=== PATIENT | female | born 1990 | race Caucasian/White ===

== ENCOUNTER 2018-03-13 14:09 | Emergency (ER) | payer OTHER ==
[2018-03-13] MEDS ORDERED: ONDANSETRON 4 MG/2 ML VIAL ONE (14:54)
[2018-03-13] MEDS ORDERED: KETOROLAC 30 MG/ML INJ ONE (14:54)
[2018-03-13] MEDS ORDERED: NA CHLORIDE 0.9% 1,000 ML ONE (14:55)
[2018-03-13 15:15] LABS: Absolute Lymphocytes (CBC) 2.9 K/uL (0.7-4.9); Absolute Monocytes 0.8 K/uL (0.1-1.3); Absolute Neutrophil 4.5 K/uL (1.8-8.0); Basophils % 0.8 % (0-1.3); Hematocrit 37.7 % (36.0-45.0); Lymphocytes % 34.8 % (15.3-44.8); MCV 90.1 fL (80-100); MPV 9.2 fL (7.6-11.3); Monocytes % 9.5 % (3.3-12.3); RBC Red Blood Cell Count 4.18 M/uL (3.86-4.86)
[2018-03-13 15:25] LABS: ALT/SGPT 18 U/L (12-78); AST/SGOT 17 U/L (15-37); Albumin 3.8 g/dL (3.4-5.0); Alkaline Phosphatase 93 U/L (45-117); BUN Blood Urea Nitrogen 6 mg/dL (7-18); Bicarbonate 26 mmol/L (21-32); Bilirubin Direct < 0.1 mg/dL (0-0.2); Bilirubin Total 0.3 mg/dL (0.2-1.0); Glucose Level 89 mg/dL (74-106); Lipase 110 U/L (73-393); Potassium 3.9 mmol/L (3.5-5.1); Protein, Total 7.4 g/dL (6.4-8.2); Sodium Level 140 mmol/L (136-145)
--- NOTE | 2018-03-13 15:49 | RAD REPORT ---
EXAM DESCRIPTION: US - Abdomen Exam Limited - 03/13/2018 3:42 pm CLINICAL HISTORY: ABD PAIN COMPARISON: No comparisons FINDINGS: The gallbladder demonstrates no gallstones. No pericholecystic fluid or gallbladder wall t hickening. The common bile duct is normal measuring 3 mm. The liver demonstrates no findings of intrahepatic biliary dilatation. IMPRESSION: Unremarkable examination.
--- NOTE | 2018-03-13 17:09 | RAD REPORT ---
EXAM DESCRIPTION: CTAbdomen Pelvis W Contrast - 03/13/2018 4:57 pm CLINICAL HISTORY: Abdominal pain. IV contrast only;Abd pain COMPARISON: CT ABD PELVIS W CONTRAST dated 08/09/2012 TECHNIQUE: Biphasic CT imaging of the abdomen and pelvis was performed with 100 ml non-ionic IV cont rast. All CT scans are performed using dose optimization technique as appropriate and may include automated exposure control or mA/KV adjustment according to patient size. FINDINGS: The lung bases are clear. The liver, spleen, pancreas, adrenal glands and left kidney are within normal limits. Stones are pres ent in the inferior calyx right kidney without hydronephrosis. No bowel obstruction, free air, free fluid or abscess. Fat containing umbilical hernia. The appendix is not identified as a discrete structure, however, no secondary findings of appendicitis are identif ied. IUD is present in the uterus. No evidence of significant lymphadenopathy. No suspicious bony findings. Prominent fecal retention in the colon. IMPRESSION: Prominent fecal material in colon. Several small calculi are present inferior right kidney. Small fat containing umbilical hernia.
--- NOTE | 2018-03-13 17:27 | EDPHYS ---
Physician Documentation [facility] Name: Sydney Nur Age: 27 yrs Sex: Female : 1990 Arrival Date: 03/13/2018 Time: 14:12 Bed 25 Private MD: Oni Barboza ED Physician Norbert Boles HPI: 03/13 14:36 This 27 yrs old Female presents to ER via Unassigned with complaints of kb Abdominal Pain. 14:36 The patient presents with abdominal pain in the right upper quadrant. Onset: The kb symptoms/episode began/occurred 8 day(s) ago. The symptoms radiate to right back. Associated signs and symptoms: none. The symptoms are described as waxing/waning. Modifying factors: the symptoms are aggravated by breathing deeply, food, pressure. Severity of pain: At its worst the pain was moderate in the emergency department the pain is unchanged. The patient has not experienced similar symptoms in the past. The patient has been recently seen by a physician: the ER physician, 1 week(s) ago, with similar presenting complaints, and apparently given a diagnosis of kidney infection, lab tests were done, was given a prescription for antibiotics. 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 - Social history:: Smoking status: Patient/guardian denies using tobacco. - Ebola Screening: : Patient negative for fever greater than or equal to 101.5 degrees Fahrenheit, and additional compatible Ebola Virus Disease symptoms Patient denies exposure to infectious person Patient denies travel to an Ebola-affected area in the 21 days before illness onset No symptoms or risks identified at this time. ROS: 14:33 Constitutional: Negative for fever, chills, and weight loss, Cardiovascular: Negative kb for chest pain, palpitations, and edema, Respiratory: Negative for shortness of breath, cough, wheezing, and pleuritic chest pain, MS/Extremity: Negative for injury and deformity, Skin: Negative for injury, rash, and discoloration, Neuro: Negative for headache, weakness, numbness, tingling, and seizure. 14:33 Abdomen/GI: Positive for abdominal pain. Exam: 14:35 Constitutional: This is a well developed, well nourished patient who is awake, alert, kb and in no acute distress. Head/Face: Normocephalic, atraumatic. Chest/axilla: Normal chest wall appearance and motion. Nontender with no deformity. No lesions are appreciated. Cardiovascular: Regular rate and rhythm with a normal S1 and S2. No gallops, murmurs, or rubs. Normal PMI, no JVD. No pulse deficits. Respiratory: Lungs have equal breath sounds bilaterally, clear to auscultation and percussion. No rales, rhonchi or wheezes noted. No increased work of breathing, no retractions or nasal flaring. Skin: Warm, dry with normal turgor. Normal color with no rashes, no lesions, and no evidence of cellulitis. MS/ Extremity: Pulses equal, no cyanosis. Neurovascular intact. Full, normal range of motion. Neuro: Awake and alert, GCS 15, oriented to person, place, time, and situation. Cranial nerves II-XII grossly intact. Motor strength 5/5 in all extremities. Sensory grossly intact. Cerebellar exam normal. Normal gait. 14:35 Abdomen/GI: Inspection: abdomen appears normal, Bowel sounds: normal, in all quadrants, Palpation: soft, in all quadrants, moderate abdominal tenderness, in the right upper quadrant. Vital Signs: 14:21 Pulse 89; Resp 16; Temp 98.0; Pulse Ox 99% on R/A; Weight 81.65 kg; Height 5 ft. 7 in. sg (170.18 cm); Pain 10/10; 14:22 BP 128 / 90; sg 15:39 BP 119 / 65; Pulse 78; Resp 18; Pulse Ox 98% on R/A; tl3 17:05 BP 112 / 55; Pulse 72; Resp 18; Pulse Ox 100% on R/A; tl3 17:41 BP 101 / 65; Pulse 70; Resp 18; Pulse Ox 100% on R/A; Pain 0/10; mg2 14:21 Body Mass Index 28.19 (81.65 kg, 170.18 cm) MDM: 14:25 Patient medically screened. kb 14:34 Data reviewed: vital signs, nurses notes. Data interpreted: Pulse oximetry: on room air kb is 99 %. Interpretation: normal. 17:20 Counseling: I had a detailed discussion with the patient and/or guardian regarding: the historical points, exam findings, and any diagnostic results supporting the discharge/admit diagnosis, lab results, radiology results, the need for outpatient follow up, a family practitioner, to return to the emergency department if symptoms worsen or persist or if there are any questions or concerns that arise at home. 17:25 ED course: Pt will continue antibiotics given by ERP at [facility]. Pt has Tylenol #3 at home. 03/13 14:30 Order name: Basic Metabolic Panel; Complete Time: 15:28 kb 03/13 14:30 Order name: CBC with Diff; Complete Time: 15:28 kb 03/13 14:30 Order name: Hepatic Function; Complete Time: 15:28 kb 03/13 14:30 Order name: Lipase; Complete Time: 15:28 kb 03/13 15:46 Order name: Urine Dipstick--Ancillary (enter results) 03/13 15:46 Order name: Urine --Ancillary (enter results) 03/13 14:30 Order name: IV Saline Lock; Complete Time: 15:02 kb 03/13 14:30 Order name: Labs collected and sent; Complete Time: 15:02 kb 03/13 14:30 Order name: US Abdomen Limited; Complete Time: 15:51 kb 03/13 15:22 Order name: CT Abd/Pelvis - W/Contrast; Complete Time: 17:11 kb 03/13 15:23 Order name: Urine Dipstick-Ancillary (obtain specimen); Complete Time: 15:39 kb Administered Medications: 15:00 Drug: NS 0.9% 1000 ml Route: IV; Rate: 1000 ml; Site: left antecubital; mg2 17:06 Follow up: IV Status: Completed infusion; IV Intake: 1000ml tl3 15:01 Drug: TORadol 30 mg Route: IVP; Site: left antecubital; mg2 17:07 Follow up: Response: Pain is decreased tl3 15:01 Drug: Zofran 4 mg Route: IVP; Site: left antecubital; mg2 17:07 Follow up: Response: No adverse reaction tl3 Disposition: 18:38 Co-signature as Attending Physician, Norbert Boles MD. Disposition: 03/13/18 17:26 Discharged to Home. Impression: Upper abdominal pain, unspecified. - Condition is Stable. - Discharge Instructions: Abdominal Pain, Adult, [id number]. - Medication Reconciliation Form, Thank You Letter, Antibiotic Education, Prescription Opioid Use form. - Follow up: Emergency Department; When: As needed; Reason: Worsening of condition. Follow up: Private Physician; When: 2 - 3 days; Reason: Recheck today's complaints, Continuance of care, Re-evaluation by your physician. Signatures: Dispatcher [employer] EDMS Maria Guadalupe Gibbons, RIDE MECHANIC-C RIDE MECHANIC-CkArmando Godinez, RN RN sg Norbert Boles MD MD Jose D Olmedo RN RN [facility] Maisha Rodriguez RN tl3 Corrections: (The following items were deleted from the chart) 14:22 14:18 PSHx: None; [facility] 17:41 17:26 03/13/2018 17:26 Discharged to Home. Impression: Upper abdominal pain, mg2 unspecified. Condition is Stable. Forms are Medication Reconciliation Form, Thank You Letter, Antibiotic Education, Prescription Opioid Use. Follow up: Emergency Department; When: As needed; Reason: Worsening of condition. Follow up: Private Physician; When: 2 - 3 days; Reason: Recheck today's complaints, Continuance of care, Re-evaluation by your physician. kb
--- NOTE | 2018-03-13 17:27 | ER ---
Nurse's Notes [facility] Name: Sydney Nur Age: 27 yrs Sex: Female : 1990 Arrival Date: 03/13/2018 Time: 14:12 Bed 25 Private MD: Oni Barboza Diagnosis: Upper abdominal pain, unspecified Presentation: 03/13 14:18 Acuity: ANAHI 3 sg 15:04 Presenting complaint: Patient states: she is complaining of nausea and right upper mg2 quadrant pain for few days already. Transition of care: patient was not received from another setting of care. Onset of symptoms was February 2018. Risk Assessment: Do you want to hurt yourself or someone else? Patient reports no desire to harm self or others. Initial Sepsis Screen: Does the patient meet any 2 criteria? No. Patient's initial sepsis screen is negative. Does the patient have a suspected source of infection? No. Patient's initial sepsis screen is negative. Care prior to arrival: None. 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 - Social history:: Smoking status: Patient/guardian denies using tobacco. - Ebola Screening: : Patient negative for fever greater than or equal to 101.5 degrees Fahrenheit, and additional compatible Ebola Virus Disease symptoms Patient denies exposure to infectious person Patient denies travel to an Ebola-affected area in the 21 days before illness onset No symptoms or risks identified at this time. Screenin:02 Abuse screen: Denies threats or abuse. Denies injuries from another. Nutritional mg2 screening: No deficits noted. Tuberculosis screening: No symptoms or risk factors identified. Fall Risk IV access (20 points). Assessment: 15:02 General: Appears in no apparent distress. comfortable, Behavior is calm, cooperative. mg2 Pain: Complains of pain in right upper quadrant Pain does not radiate. Pain currently is 8 out of 10 on a pain scale. Quality of pain is described as aching, Pain began gradually, 2-3 days ago. Is intermittent. Neuro: Level of Consciousness is awake, alert, obeys commands, Oriented to person, place, time, situation. Cardiovascular: Capillary refill < 3 seconds Patient's skin is warm and dry. Respiratory: Airway is patent Respiratory effort is even, unlabored, Respiratory pattern is regular, symmetrical. GI: Bowel sounds present X 4 quads. Abd is soft Reports upper abdominal pain, nausea. : No signs and/or symptoms were reported regarding the genitourinary system. EENT: No signs and/or symptoms were reported regarding the EENT system. Derm: Skin is intact, is healthy with good turgor, Skin is pink, warm \T\ dry. normal. Musculoskeletal: No signs and/or symptoms reported regarding the musculoskeletal system. 15:39 Reassessment: Patient appears in no apparent distress at this time. Patient and/or tl3 family updated on plan of care and expected duration. Pain level reassessed. Patient is alert, oriented x 3, equal unlabored respirations, skin warm/dry/pink. no needs at this time. 17:05 Reassessment: Patient appears in no apparent distress at this time. No changes from tl3 previously documented assessment. Patient and/or family updated on plan of care and expected duration. Pain level reassessed. Patient is alert, oriented x 3, equal unlabored respirations, skin warm/dry/pink. pt returned from CT. Vital Signs: 14:21 Pulse 89; Resp 16; Temp 98.0; Pulse Ox 99% on R/A; Weight 81.65 kg; Height 5 ft. 7 in. sg (170.18 cm); Pain 10/10; 14:22 BP 128 / 90; sg 15:39 BP 119 / 65; Pulse 78; Resp 18; Pulse Ox 98% on R/A; tl3 17:05 BP 112 / 55; Pulse 72; Resp 18; Pulse Ox 100% on R/A; tl3 17:41 BP 101 / 65; Pulse 70; Resp 18; Pulse Ox 100% on R/A; Pain 0/10; mg2 14:21 Body Mass Index 28.19 (81.65 kg, 170.18 cm) ED Course: 14:12 Patient arrived in ED. mr 14:12 Oni Barboza MD is Private Physician. mr 14:12 Maria Guadalupe Gibbons [facility]C [facility] kb 14:12 Norbert Boles MD is Attending Physician. kb 14:19 Triage completed. sg 14:21 Arm band placed on. sg 15:01 No provider procedures requiring assistance completed. Inserted saline lock: 20 gauge mg2 in left antecubital area, using aseptic technique. Blood collected. 15:05 Patient has correct armband on for positive identification. Pulse ox on. NIBP on. mg2 15:31 Maisha Rodriguez, RN is Primary Nurse. tl3 15:39 US Abdomen Limited Sent. tl3 15:42 US Abdomen Limited In Process Unspecified. EDMS 16:20 Radiology exam delayed due to test not completed at this time. mw3 16:57 CT Abd/Pelvis - W/Contrast In Process Unspecified. EDMS 17:16 CT completed. Patient tolerated procedure well. Patient moved to CT via wheelchair. mw3 Patient moved back from CT. 17:40 IV discontinued, intact, bleeding controlled, No redness/swelling at site. Pressure mg2 dressing applied. Administered Medications: 15:00 Drug: NS 0.9% 1000 ml Route: IV; Rate: 1000 ml; Site: left antecubital; mg2 17:06 Follow up: IV Status: Completed infusion; IV Intake: 1000ml tl3 15:01 Drug: TORadol 30 mg Route: IVP; Site: left antecubital; mg2 17:07 Follow up: Response: Pain is decreased tl3 15:01 Drug: Zofran 4 mg Route: IVP; Site: left antecubital; mg2 17:07 Follow up: Response: No adverse reaction tl3 Intake: 17:06 IV: 1000ml; Total: 1000ml. tl3 Outcome: 17:26 Discharge ordered by . kb 17:40 Discharged to home ambulatory. mg2 17:40 Condition: stable 17:40 Discharge instructions given to patient, Instructed on discharge instructions, follow up and referral plans. Demonstrated understanding of instructions, follow-up care. 17:41 Patient left the ED. mg2 Signatures: Dispatcher [employer] EDMS Maria Guadalupe Gibbons, ALEXIS RÍOSP-Armando Salcedo RN RN sg PickettLory mr Maisha Rodriguez, RN RN tl3 Jose D Olmedo RN RN mg2 Tara Goncalves mw3 Corrections: (The following items were deleted from the chart) 14:22 14:18 PSHx: None; sg sg
[2018-03-13 17:51] VITALS: TEMP 98
[2018-03-13 18:02] VITALS: O2SAT 100
[2018-03-13 18:04] VITALS: BP 101/65
[2018-03-13 20:28] LABS: Urine Blood TRACE (NEG); Urine Glucose NEGATIVE (NEG); Urine Protein NEGATIVE (NEG)
== END 2018-03-13 17:41 | disposition home or self-care (01) ==
LOC: ER 14:09
DX: R10.10 Upper abdominal pain, unspecified (principal); Z88.0 Allergy status to penicillin
CPT/HCPCS: 36415; 74177; 76705; 80048; 80076; 81003; 81025; 83690; 85025; 96361; 96374; 96375; 99284; J2405; J7030; Q9967

== ENCOUNTER 2023-11-08 17:39 | Emergency (ER) | payer BC ==
--- OUTSIDE RECORDS SUMMARY | 2023-11-08 17:42 | XMS REPORT | Continuity of Care Document ---
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 Role Phone Aileen Real Primary Care Physician +- [phone] [email or web address]_Eboniea_S Attending Clinician Unavaila AMARJIT Ramirez Attending Clinician Unavaila AMARJIT Ramirez Attending Clinician Unavaila Vinod Moralez PA-C Attending Clinician [phone] VINOD ORTEZ Attending Clinician Unavailable KIT NAJERA Attending Clinician Unavailable Doctor Unassigned, [place] Attending Clinician U roula Sylvester RN, Ely Fox Attending Clinician Unavaila Rip Perez Attending Clinician [phone] MARCELA DAVID Attending Clinician Unavailable Lab, Adc Fam Pob I Attending Clinician Marcela Griffin Attending Clinician [phone] Aileen Real Attending Clinician [phone] MARY_GCBZW_Nemesio_S Admitting Clinician Imer foster Payers Payer Name Policy Type Policy Number Effective Date Expirati on Date Source [facility] [id number] 2020 00:00:00 [place] [id number] 2023 00:00:00 CIGNA II [id number] 2020 00:00:00 Problems Condition Name Condition Details Condition Category Status Onset Date Resolution Date Last Treatment Date Treating Clinician Comments Source Herpes genitalia Herpes genitalia Disease Active 8-09 00:00: 00 [facility] Allergic contact dermatitis due to plants, except food Allergic contact dermatitis due to plants, except food Disease Active 4-18 00:00: 00 [facility] Contact dermatitis due to poison damaris Contact dermatitis due to poison damaris Disease Active 09-29 00:00: 00 [facility] Personal history of covid-19 Personal history of covid-19 Disease Active 2-15 00:00: 00 [facility] Well woman exam with routine gynecologi clifton exam Well woman exam with routine gynecologi clifton exam Disease Active 10-06 00:00: 00 [facility] IUD (intrauter ine device) in place IUD (intrauter ine device) in place Disease Active 10-06 00:00: 00 [facility] Tobacco user Tobacco user Disease Active 10-06 00:00: 00 [facility] BMI 30.0-30.9, adult BMI 30.0-30.9, adult Disease Active 10-06 00:00: 00 [facility] Pain pelvic Pain pelvic Disease Active 10-06 00:00: 00 [facility] Enlarged uterus Enlarged uterus Disease Active 10-06 00:00: 00 [facility] IUD (intrauter ine device) in place IUD (intrauter ine device) in place Disease Active 10-06 00:00: 00 [facility] Allergies, Adverse Reactions, Alerts Allergy Name Allergy Type Status Severity Reaction(s) Onset Date Inactive Date Treating Clinician Comments Source Penicill ins Propensi ty to adverse reaction s Active Anaphylaxis 2008-06 00:00: 00 [facility] Penicill ins Propensi ty to adverse reaction s Active Anaphylaxis 2008-06 00:00: 00 [facility] Penicill ins Propensi ty to adverse reaction s Active Anaphylaxis 2008-06 00:00: 00 [facility] PENICILL INS Drug Class Active Anaphylaxis 2008-06 00:00: 00 [facility] Social History Social Habit Start Date Stop Date Quantity Comments Source History of tobacco use 2016-10-06 00:00:00 Cigarette Smoker [facility] History SDOH Alcohol Frequency [facility] History SDOH Alcohol Std Drinks [facility] History SDOH Alcohol Binge [facility] Exposure to SARS-CoV-2 (event) 2022-01-08 00:00:00 2022-01-18 14:54:00 Not sure [facility] History of Social function 2020-01-18 00:00:00 2020-01-18 00:00:00 [facility] Alcohol intake 2018-10-06 00:00:00 2018-10-06 00:00:00 Current drinker of alcohol (finding) [facility] Tobacco Comment 2018-10-06 00:00:00 2018-10-06 00:00:00 vapes [facility] Alcohol Comment 2018-10-06 00:00:00 2018-10-06 00:00:00 occaisonal [facility] Tobacco use and exposure 2018-10-06 00:00:00 2018-10-06 00:00:00 Smokeless tobacco non-user [facility] Sex Assigned At 1990 00:00:00 1990 00:00:00 [facility] Smoking Status Start Date Stop Date Source Smokes tobacco daily 2018-10-06 00:00:00 [facility] Medications Ordered Medication Name Filled Medication Name Start Date Stop Date Current Medication? Ordering Clinician Indication Dosage Frequency Signature (SIG) Comments Components Source Nitrofurant oin&Nit. Macrocryst (MACROBID) 100 mg capsule 807 00:00: 00 01-26 04:59 :00 No [id number] 100mg Take 1 capsule by mouth in the morning and 1 capsule in the evening. Do all this for 7 days. [facility] ibuprofen 600 mg tablet 2 00:00: 00 Yes [id number] 600mg Take 1 tablet by mouth every 6 (six) hours as needed for Pain (scale 4-6). [facility] benzonatate 200 mg capsule 07-15 00:00: 00 Yes [id number] 200mg Take 1 capsule by mouth 3 (three) times daily as needed for Cough for up to 20 doses. [facility] ondansetron (ZOFRAN ODT) 4 mg disintegrat ing tablet 07-15 00:00: 00 Yes [id number] 4mg Take 1 tablet by mouth every 8 (eight) hours as needed for Nausea and Vomiting (N/V). [facility] No known medications No Un bridgett [facility] No known medications No Un bridgett [facility] V[facility] Signs Vital Name Observation Time Observation Value Comments S ource Systolic blood pressure 2022-01-18 22:08:00 126 mm[Hg] [facility] Diastolic blood pressure 2022-01-18 22:08:00 83 mm[Hg] [facility] Heart rate 2022-01-18 22:08:00 110 /min [facility] Body temperature 2022-01-18 22:08:00 37.56 Angela [facility] Respiratory rate 2022-01-18 22:08:00 18 /min [facility] Body height 2022-01-18 22:08:00 170.2 cm [facility] Body weight 2022-01-18 22:08:00 90.22 kg [facility] BMI 2022-01-18 22:08:00 31.15 kg/m2 [facility] Oxygen saturation in Arterial blood by Pulse oximetry 2022-01-18 22:08:00 98 /min [facility] Systolic blood pressure 2020-07-15 20:09:00 131 mm[Hg] [facility] Diastolic blood pressure 2020-07-15 20:09:00 91 mm[Hg] [facility] hospital Heart rate 2020-07-15 20:09:00 100 /min [facility] Body temperature 2020-07-15 20:09:00 37.61 Angela [facility] Respiratory rate 2020-07-15 20:09:00 16 /min [facility] Body weight 2020-07-15 20:09:00 91.218 kg [facility] BMI 2020-07-15 20:09:00 31.50 kg/m2 [facility] Oxygen saturation in Arterial blood by Pulse oximetry 2020-07-15 20:09:00 98 /min [facility] acute hospital Systolic blood pressure 2019-02-03 18:04:00 118 mm[Hg] [facility] Diastolic blood pressure 2019-02-03 18:04:00 81 mm[Hg] [facility] acute hospital Heart rate 2019-02-03 18:04:00 79 /min [facility] Body temperature 2019-02-03 18:04:00 36.89 Angela [facility] Respiratory rate 2019-02-03 18:04:00 18 /min [facility] Body height 2019-02-03 18:04:00 170.2 cm [facility] Body weight 2019-02-03 18:04:00 88.905 kg [facility] BMI 2019-02-03 18:04:00 30.70 kg/m2 [facility] Procedures Procedure Date / Time Performed Performing Clinicia n Source XR FOOT <3 VW RIGHT 2022-01-18 22:30:00 Vinod Ortez [facility] POCT TEST 2022-01-18 22:18:00 Vinod Ortez [facility] POCT URINALYSIS 2022-01-18 22:16:00 Vinod Ortez [facility] COMP. METABOLIC PANEL (95134) 2020-07-15 22:23:00 Rip Quintero [facility] CBC WITH DIFF 2020-07-15 22:23:00 Rip Quintero [facility] D-DIMER 2020-07-15 22:23:00 [facility] XR CHEST 1 VW 2020-07-15 22:16:00 Rip Quintero [facility] NOTICE OF PRIVACY PRACTICES 2020-07-15 19:48:11 Doctor Unassigned, [place] [facility] CONSENT/REFUSAL FOR DIAGNOSIS AND TREATMENT 2020-07-15 19:47:57 Doctor Unassigned, [place] [facility] Encounters Start Date/Time End Date/Time Encounter Type Admission Type Attending [email or web address] Care Department Encounter ID Source 2021-04-12 21:01:49 Emergency [facility] [id number] [facility] 2023-03-22 00:00:00 2023-03-22 00:00:00 Outpatient GC_GCBZW_Ka diyala_S PRIV PRIV [id number] [facility] 2023-03-22 00:00:00 2023-03-22 00:00:00 Outpatient GC_GCBZW_Ka diyala_S PRIV PRIV [id number] [facility] 2023-03-20 00:00:00 2023-03-20 00:00:00 Outpatient GC_GCBZW_Ka diyala_S PRIV PRIV [id number] [facility] 2023-03-18 00:00:00 2023-03-18 00:00:00 Outpatient GC_GCBZW_Ka diyala_S PRIV PRIV [id number] [facility] 2023-03-16 00:00:00 2023-03-16 00:00:00 Outpatient GC_GCBZW_Ka diyala_S PRIV PRIV [id number] [facility] 2023-03-16 00:00:00 2023-03-16 00:00:00 Outpatient GC_GCBZW_Ka diyala_S PRIV PRIV [id number] [facility] 2023-03-15 00:00:00 2023-03-15 00:00:00 Outpatient GC_GCBZW_Ka diyala_S PRIV PRIV [id number] [facility] 2023-02-23 00:00:00 2023-02-23 00:00:00 Outpatient GC_GCBZW_Ka diyala_S PRIV PRIV [id number] [facility] 2023-02-23 00:00:00 2023-02-23 00:00:00 Outpatient GC_GCBZW_Ka diyala_S PRIV PRIV [id number] [facility] 2023-02-12 00:00:00 2023-02-12 00:00:00 Outpatient GC_GCBZW_Ka diyala_S PRIV PRIV [id number] [facility] 2023-02-11 00:00:00 2023-02-11 00:00:00 Outpatient GC_GCBZW_Ka diyala_S PRIV PRIV [id number] [facility] 2022-01-27 11:30:00 2022-01-27 11:30:00 Outpatient AMARJIT MERRILL CHERYAL [facility] [id number] [facility] 2022-01-18 17:23:43 2022-01-18 23:59:00 Hospital Encounter Ortez, [facility] 1.2.840.114 350.1.13.10 4.2.7.2.686 [id number] [facility] 2022-01-18 17:20:00 2022-01-18 17:48:45 Outpatient R ANAND [facility] [id number] [facility] 2022-01-18 17:20:00 2022-01-18 17:48:45 [facility] 1.2.840.114 350.1.13.10 4.2.7.2.686 [id number] [facility] 2021-03-05 13:30:00 2021-03-05 13:30:00 Outpatient KIT GARG [facility] [id number] [facility] 2020-07-16 00:00:00 2020-07-16 00:00:00 Patient Secure Msg Doctor Unassigned, [place] [facility] 1.2.840.114 350.1.13.10 4.2.7.2.686 [id number] [facility] 2020-07-16 00:00:00 2020-07-16 00:00:00 Patient Secure Msg Doctor Unassigned, [place] [facility] 1.2.840.114 350.1.13.10 4.2.7.2.686 [id number] [facility] 2020-07-16 00:00:00 2020-07-16 00:00:00 Patient Secure Msg Doctor Unassigned, [place] [facility] 1.2.840.114 350.1.13.10 4.2.7.2.686 [id number] [facility] 2020-07-16 00:00:00 2020-07-16 00:00:00 Telephone Ely Sylvester [facility] 1.2.840.114 350.1.13.10 4.2.7.2.686 [id number] [facility] 2020-07-15 14:12:00 2020-07-15 18:22:00 Emergency Rip Quintero [facility] 1.2.840.114 350.1.13.10 4.2.7.2.686 [id number] [facility] 2020-07-15 00:00:00 2020-07-15 00:00:00 Orders Only Doctor Unassigned, [place] [facility] 1.2.840.114 350.1.13.10 4.2.7.2.686 [id number] [facility] 2020-05-12 12:20:00 2020-05-12 12:20:00 Outpatient MARCELA NEGRO [facility] [id number] [facility] 2020-05-12 11:48:56 2020-05-12 12:08:56 Laboratory Only Lab, Adc Fam Pob I Marcela David [facility] 1.2.840.114 350.1.13.10 4.2.7.2.686 [id number] [facility] 2020-05-12 12:00:00 2020-05-12 12:00:00 Outpatient R MARCELA DAVID [facility] [id number] [facility] 2019-02-03 12:54:07 2019-02-03 13:19:56 Office Visit Aileen Preston Jerardo [facility] [employer] [facility] 1.2.840.114 350.1.13.10 4.2.7.2.686 [id number] [facility] Results Test Description Test Time Test Comments Results Result Co mments Source [facility] W SPECIFIC [id number] 22:17:00* Test Item Value Reference Range Interpretation Comme nts POCT U SP GRAV (test code = 3255) 1.005 mg/dl 1.005-1.025 POCT PH U (test code = 3254) 6 mg/dl 5-8 POCT U LEUK EST (test code = 3263) + Negative - Negative POCT U NIT (test code = 3262) negative Negative - Negative POCT U PROT (test code = 3259) trace Negative - Negative POCT U GLU (test code = 3256) normal Negative - Negative POCT U KETONE (test code = 3258) negative Negative - Negative POCT U UROBILI (test code = 3260) normal 0.2-1 POCT U BILI (test code = 3261) negative Negative - Negative POCT U BLD (test code = 3257) trace Negative - Negative POCT U COLOR (test code = 3266) dark yellow POCT U APPEAR (test code = 3267) cloudy JERE (test code = JERE) accurate developme nt and interpretation of all internal controls Lab Interpretation (test code = 69256-1) Abnormal [facility][id number] 23:36:00* Test Item Value Reference Range Interpretation Comments D-DIMER (test code = 1706498736) <0.27 See_Comment [Automated message] The system which generated this result transmitted reference range: <0.41 ?g/mL (FEU). The reference range was not used to interpret this result as normal/abnormal. JERE (test code = JERE) This test may be used in conjunction with a clinical pretest probability (PTP) assessment model to exclude venous thromboembolism (VTE) in patients suspected of deep venous thrombosis (DVT) and pulmonary embolism (PE) A D-Dimer value less than 0.50 ?g/ml (FEU) has a negative predicative value of 96 to 100% (95% CI)and 97 to 100% (95% CI) as an aid in the diagnosis of deep vein thrombosis (DVT) and pulmonary embolism when there is low or moderate pretest probability of PE or DVT. D-Dimer values are expressed in initial fibrinogen equivalent units (FEU)" The assay results should be used with other information, including the clinical context, in forming a diagnosis. Lab Interpretation (test code = 04114-8) Normal [facility]OLIC PAN[facility] (52748)2020-07-15 23:13:00* Test Item Value Reference Range Interpretation Comme nts NA (test code = 9659694415) 138 mmol/L 135-145 K (test code = 2907701235) 3.9 mmol/L 3.5-5 CL (test code = 9371523421) 103 mmol/L 98-108 CO2 TOTAL (test code = 6127346280) 28 mmol/L 23-31 AGAP (test code = 8806158146) 2-16 BUN (test code = 5127165359) 6 mg/dL 7-23 L GLUCOSE (test code = 7802836297) 105 mg/dL 70-110 CREATININE (test code = 4703719474) 0.58 mg/dL 0.5-1.04 TOTAL BILI (test code = 8370501963) 0.4 mg/dL 0.1-1.1 CALCIUM (test code = 9993071119) 9.4 mg/dL 8.6-10.6 T PROTEIN (test code = 0976910123) 7.2 g/dL 6.3-8.2 ALBUMIN (test code = 7709711147) 4.5 g/dL 3.5-5 ALK PHOS (test code = 1512809941) 104 U/L 34-122 ALTv (test code = 1742-6) 71 U/L 5-35 H AST(SGOT) (test code = 8079021204) 39 U/L 13-40 eGFR Calculation (Non-) (test code = 2840677845) mL/min/1.73m2 eGFR Calculation () (test code = 1792898167) mL/min/1.73m2 JERE (test code = JERE) Association of Glomerular Filtration Rate (GFR) and Staging of Kidney Disease* + --+ --+ ------+| GFR (mL/min/1.73 m2) ?| With Kidney Damage ?| ?Without Kidney Damage+ --------+ --------+ +| ?>90 ?| ?Stage one ?| ? Normal ?+ ---+ ---+ -------+| ?60-89 ?| ?Stage two ?| ? Decreased GFR ? + --+ --+ ------+| ?30-59 ?| ?Stage three ?| ? Stage three ? + --+ --+ ------+| ?15-29 ?| ?Stage four ? | ? Stage four ?+ ---+ ---+ -------+| ?<15 (or dialysis) ? ?| ?Stage five ? | ? Stage five ?+ ---+ ---+ -------+ *Each stage assumes the associated GFR level has been in effect for at least three months. ?Stages 1 to 5, with or without kidney disease, indicate chronic kidney disease. Notes: Determination of stages one and two (with eGFR >59mL/min/1.73 m2) requires estimation of kidney damage for at least three months as defined by structural or functional abnormalities of the kidney, manifested by either:Pathological abnormalities or Markers of kidney damage (including abnormalities in the composition of the blood or urine or abnormalities in imaging tests). Lab Interpretation (test code = 16888-1) Abnormal [facility] WITH [id number] 22:57:00* Test Item Value Reference Range Interpretation Comme nts WBC (test code = 6690-2) See_Comment [Automated MyColorScreen] The system which generated this result transmitted reference range: 4.30 - 11.10 10*3/?L. The reference range was not used to interpret this result as normal/abnormal. RBC (test code = 789-8) See_Comment [Automated messa ge] The system which generated this result transmitted reference range: 3.93 - 5.25 10*6/?L. The reference range was not used to interpret this result as normal/abnormal. HGB (test code = 718-7) 13.3 g/dL 11.6-15 HCT (test code = 4544-3) 40.2 % 35.7-45.2 MCV (test code = 787-2) 92.8 fL 80.6-95.5 MCH (test code = 785-6) 30.7 pg 25.9-32.8 MCHC (test code = 786-4) 33.1 g/dL 31.6-35.1 RDW-SD (test code = 12739-7) 39.5 fL 39-49.9 RDW-CV (test code = 788-0) 11.6 % 12-15.5 L PLT (test code = 777-3) See_Comment H [Automated messa ge] The system which generated this result transmitted reference range: 166 - 358 10*3/?L. The reference range was not used to interpret this result as normal/abnormal. MPV (test code = 01427-8) 10.2 fL 9.5-12.9 NRBC/100 WBC (test code = 9490647343) See_Comment [Automated Independa ssage] The system which generated this result transmitted reference range: 0.0 - 10.0 /100 WBCs. The reference range was not used to interpret this result as normal/abnormal. NRBC x10^3 (test code = 7645698566) <0.01 See_Comment [Automated messa ge] The system which generated this result transmitted reference range: 10*3/?L. The reference range was not used to interpret this result as normal/abnormal. GRAN MAT (NEUT) % (test code = 770-8) 55.8 % IMM GRAN % (test code = 2464193321) 0.50 % LYMPH % (test code = 736-9) 32.5 % MONO % (test code = 5905-5) 8.0 % EOS % (test code = 713-8) 2.3 % BASO % (test code = 706-2) 0.9 % GRAN MAT x10^3(ANC) (test code = 9944925466) 4.88 10*3/uL 1.88-7.09 IMM GRAN x10^3 (test code = 6067341839) 0.04 10*3/uL 0-0.06 LYMPH x10^3 (test code = 731-0) 2.84 10*3/uL 1.32-3.29 MONO x10^3 (test code = 742-7) 0.70 10*3/uL 0.33-0.92 EOS x10^3 (test code = 711-2) 0.20 10*3/uL 0.03-0.39 BASO x10^3 (test code = 704-7) 0.08 10*3/uL 0.01-0.07 H Lab Interpretation (test code = 71227-0) [facility]normal [facility] 1 [id number] 22:16:40CHEST ONE VIEW HISTORY: ?CP, SOB TECHNIQUE: ?AP view of the chest is obtained. FINDINGS: Lungs are clear. Heart size and mediastinal silhouette arenormal. No pleural effusion or pneumothorax is seen.CONCLUSIONS: No acute cardiopulmonary disease. [facility], Radiant Results Inft User - 07/15/2020 4:17 PMCSTCHEST ONE VIEWHISTORY: CP, SOBTECHNIQUE: AP view of the chest is obtained.FINDINGS: Lungs are clear. Heart size and mediastinal silhouette arenormal. No pleural effusion or pneumothorax is seen.CONCLUSIONS: No acute cardiopulmonary disease.[facility]
[2023-11-08] MEDS ORDERED: NA CHLORIDE 0.9% 2,000 ML ONE (18:38)
[2023-11-08 18:47] LABS: Absolute Basophils 0.1 K/uL (0-0.5); Absolute Monocytes 1.6 K/uL (0.1-1.3); Absolute Neutrophil 13.8 K/uL (1.8-8.0); Basophils % 0.6 % (0-1.3); Eosinophils % 0.3 % (0-4.4); Hematocrit 40.9 % (36.0-45.0); Hemoglobin 13.8 g/dL (12.0-15.0); Lymphocytes % 16.3 % (15.3-44.8); MCH 30.9 pg (27.0-35.0); MCHC 33.8 g/dL (32.0-36.0); MCV 91.5 fL (80-100); MPV 8.3 fL (7.6-11.3); Monocytes % 8.4 % (3.3-12.3); Neutrophils % 74.4 % (41.7-73.7); Nucleated Red Blood Cells % 0.1 % (0-0); Platelets 425 thou/uL (152-406); RBC Red Blood Cell Count 4.47 M/uL (3.86-4.86); Red Cell Distribution Width 12.2 % (12.1-15.2)
[2023-11-08 18:48] LABS: Sqamous Epithelial <5 /HPF (None Seen); Urine Bacteria None Seen /HPF (<20); Urine Bilirubin NEGATIVE (Negative); Urine Blood 1+ (Negative); Urine Clarity Extremely Turbid (Clear); Urine Color Yellow (Yellow); Urine Crystals Unidentified Few /HPF (None Seen); Urine Culture Reflex Order NOT NEEDED; Urine Glucose NEGATIVE (Negative); Urine Ketones 1+ (Negative); Urine Microscopic Reflex YN ORDER UMIC; Urine Mucus 1+ /HPF (None Seen); Urine Nitrite NEGATIVE (Negative); Urine Protein TRACE (Negative); Urine Urobilinogen Normal (Normal); Urine WBC <5 /HPF (<5); Urine WBC Clump Rare /HPF (None Seen); Urine Yeast (Budding) Trace /HPF (None Seen); Urine pH 5.5 (5.0-7.0)
[2023-11-08 19:03] LABS: Albumin 4.1 g/dL (3.4-5.0); Albumin/Globulin Ratio 1.1 (1.1-1.8); Anion Gap 10.5 mEq/L (5.0-15.0); Bilirubin Total 0.8 mg/dL (0.2-1.0); Globulin 3.9 g/dL (2.3-3.5); Potassium 3.5 mEq/L (3.5-5.1); Troponin High Sensitivity 6.9 pg/mL (<58.9)
--- NOTE | 2023-11-08 19:48 | EDPHYS ---
Physician Documentation [facility] Name: Sydney Nur Age: 33 yrs Sex: Female : 1990 Arrival Date: 11/08/2023 Time: 17:39 Bed 13 Private MD: ED Physician Michael Eller HPI: 11/07 18:55 This 33 yrs old Female presents to ER via Ambulatory with complaints of Heat mal Exposure. 18:55 IN HEAT 7 HOURS TODAY, WEAK , HOT. Onset: The symptoms/episode began/occurred today. mal Severity of symptoms: At their worst the symptoms were mild in the emergency department the symptoms are unchanged. The patient has not experienced similar symptoms in the past. Historical: - Allergies: 18:13 PENICILLINS; hb - Home Meds: 18:13 escitalopram oxalate 10 mg oral tablet daily [Active]; hb - PMHx: 18:13 Kidney stones; hb - PSHx: 18:13 section; hb - Immunization history:: Adult Immunizations up to date. - Infectious Disease History:: Denies. - Social history:: Smoking status: Reported history of juuling and/or vaping. ROS: 18:59 Constitutional: Negative for fever, chills, and weight loss, Eyes: Negative for injury, mal pain, redness, and discharge, ENT: Negative for injury, pain, and discharge, Neck: Negative for injury, pain, and swelling, Respiratory: Negative for shortness of breath, cough, wheezing, and pleuritic chest pain, Abdomen/GI: Negative for abdominal pain, nausea, vomiting, diarrhea, and constipation, Back: Negative for injury and pain, : Negative for injury, bleeding, discharge, and swelling, MS/Extremity: Negative for injury and deformity, Skin: Negative for injury, rash, and discoloration, Psych: Negative for depression, anxiety, suicide ideation, homicidal ideation, and hallucinations, Allergy/Immunology: Negative for hives, rash, and allergies, Endocrine: Negative for neck swelling, polydipsia, polyuria, polyphagia, and marked weight changes, Hematologic/Lymphatic: Negative for swollen nodes, abnormal bleeding, and unusual bruising, 18:59 Cardiovascular: Positive for palpitations, 18:59 Neuro: Positive for dizziness, weakness, Exam: 18:59 Constitutional: This is a well developed, well nourished patient who is awake, alert, mal and in no acute distress. Head/Face: Normocephalic, atraumatic. Eyes: Pupils equal round and reactive to light, extra-ocular motions intact. Lids and lashes normal. Conjunctiva and sclera are non-icteric and not injected. Cornea within normal limits. Periorbital areas with no swelling, redness, or edema. ENT: Nares patent. No nasal discharge, no septal abnormalities noted. Tympanic membranes are normal and external auditory canals are clear. Oropharynx with no redness, swelling, or masses, exudates, or evidence of obstruction, uvula midline. Mucous membranes moist. Neck: Trachea midline, no thyromegaly or masses palpated, and no cervical lymphadenopathy. Supple, full range of motion without nuchal rigidity, or vertebral point tenderness. No Meningismus. Chest/axilla: Normal chest wall appearance and motion. Nontender with no deformity. No lesions are appreciated. Respiratory: Lungs have equal breath sounds bilaterally, clear to auscultation and percussion. No rales, rhonchi or wheezes noted. No increased work of breathing, no retractions or nasal flaring. Abdomen/GI: Soft, non-tender, with normal bowel sounds. No distension or tympany. No guarding or rebound. No evidence of tenderness throughout. Back: No spinal tenderness. No costovertebral tenderness. Full range of motion. Skin: Warm, dry with normal turgor. Normal color with no rashes, no lesions, and no evidence of cellulitis. MS/ Extremity: Pulses equal, no cyanosis. Neurovascular intact. Full, normal range of motion. Neuro: Awake and alert, GCS 15, oriented to person, place, time, and situation. Cranial nerves II-XII grossly intact. Motor strength 5/5 in all extremities. Sensory grossly intact. Cerebellar exam normal. Normal gait. Psych: Awake, alert, with orientation to person, place and time. Behavior, mood, and affect are within normal limits. 18:59 Cardiovascular: Rate: tachycardic, actual rate is 104 bpm, Rhythm: regular, Pulses: Pulses are 4+ in bilateral radial, brachial, femoral, popliteal, posterior tibial and and dorsalis pedis arteries.. Heart sounds: normal, Edema: is not appreciated, JVD: is not appreciated, 18:59 ECG was reviewed by the Attending Physician. Vital Signs: 18:12 BP 129 / 95; Pulse 104; Resp 15; Temp 99(O); Pulse Ox 98% on R/A; Weight 90.72 kg; hb Height 5 ft. 7 in. ; Pain 5/10; 19:15 BP 120 / 88; Pulse 99; Resp 18 S; Pulse Ox 98% on R/A; jw7 21:44 BP 124 / 82; Pulse 89; Resp 17; Temp 98.3; Pulse Ox 99% ; jj7 18:12 Body Mass Index 31.32 (90.72 kg, 170.18 cm) hb 18:12 Pain Scale: Adult hb MDM: 17:41 Patient medically screened. [facility] 19:01 Differential Diagnosis altered mental status, sepsis, flu. Data reviewed: vital signs, [facility] nurses notes, lab test result(s), EKG, radiologic studies, plain films. Consideration of Admission/Observation Escalation of care including admission/observation considered. I considered the following discharge prescriptions or medication management in the emergency department Medications were administered in the Emergency Department. See MAR. Independent interpretation of the following test(s) in the Emergency Department EKG: See my EKG interpretation above. Test considered but Not performed: X-ray: NO CXR. Historians other than the Patient: PT WELL INFORMED. Care significantly affected by the following chronic conditions: KIDNEY STONES. Counseling: I had a detailed discussion with the patient and/or guardian regarding the historical points, exam findings, and any diagnostic results supporting the discharge/admit diagnosis, lab results, radiology results, the need for outpatient follow up, for definitive care, a family practitioner. 11/07 17:43 Order name: CBC with Diff; Complete Time: 19:08 [facility] 11/07 17:43 Order name: Comprehensive Metabolic Panel; Complete Time: 19:08 [facility] 11/07 17:43 Order name: Troponin High Sensitivity; Complete Time: 19:08 [facility] 11/07 17:43 Order name: Urinalysis w/ reflexes; Complete Time: 18:49 [facility] 11/07 17:43 Order name: PREGU; Complete Time: 18:49 [facility] 11/07 17:43 Order name: CPK; Complete Time: 19:08 [facility] 11/07 17:43 Order name: EKG; Complete Time: 17:43 [facility] 11/07 17:43 Order name: EKG - Nurse/Tech; Complete Time: 19:01 [facility] 11/07 17:43 Order name: PO challenge; Complete Time: : [facility] EC:59 Rate is 97 beats/min. Rhythm is regular. QRS [place] is Normal. IN interval is normal. QRS mal interval is normal. QT interval is normal. No Q waves. T waves are Normal. No ST changes noted. Clinical impression: NSR w/ Non-specific ST/T Changes and No evidence of ischemia. Interpreted by me. Reviewed by me. Administered Medications: 18:41 Drug: NS 0.9% IV 1000 ml IV at 1 bolus Per protocol; 1000 mL bolus Route: IV; Rate: 1 cp4 bolus; Site: right antecubital; 20:07 Follow up: Response: No adverse reaction; IV Status: Completed infusion; IV Intake: jw7 1000ml 18:41 Drug: NS 0.9% IV 1000 ml IV at 1 bolus Per protocol; 1000 mL bolus Route: IV; Rate: 1 cp4 bolus; Site: right antecubital; 21:44 Follow up: IV Status: Completed infusion jj7 Disposition Summary: 11/08/23 19:47 Discharge Ordered Notes: Location: Home mal Problem: new mal Symptoms: have improved mal Condition: Stable mal Diagnosis - Heat exhaustion, unspecified mal - Dehydration mal - Elevated white blood cell count mal Followup: mal - With: Private Physician - When: 2 - 3 days - Reason: Recheck today's complaints, Continuance of care, Re-evaluation by your physician Discharge Instructions: - Discharge Summary Sheet mal - Dehydration, Adult mal - Heat Exhaustion mal - Dehydration, Adult, [id number] mal - Preventing Heat Exhaustion, Adult mal Forms: - Medication Reconciliation Form mal - Antibiotic Education mal - Prescription Opioid Use mal - Patient Portal Instructions mal - Leadership Thank You Letter mal Signatures: Dispatcher [employer] Michael Ponce MD MD cha Baxter, Heather, RN RN Lucille Brock cp4 Elli Monzon RN jw7 Shayna Fulton RN jj7
--- NOTE | 2023-11-08 19:48 | ER ---
Nurse's Notes [facility] Name: Sydney Nur Age: 33 yrs Sex: Female : 1990 Arrival Date: 11/08/2023 Time: 17:39 Bed 13 Private MD: Diagnosis: Heat exhaustion, unspecified;Dehydration;Elevated white blood cell count Presentation: 11/07 18:12 Chief complaint: Body aches, headache, and nausea after working out in the heat all hb day. Coronavirus screen: At this time, the client does not indicate any symptoms associated with coronavirus-19. Ebola Screen: No symptoms or risks identified at this time. Initial Sepsis Screen: Does the patient meet any 2 criteria? No. Patient's initial sepsis screen is negative. Does the patient have a suspected source of infection? No. Patient's initial sepsis screen is negative. Risk Assessment: Do you want to hurt yourself or someone else? Patient reports no desire to harm self or others. Onset of symptoms was November 08, 2023. 18:12 Method Of Arrival: Ambulatory hb 18:12 Acuity: ANAHI 3 hb Triage Assessment: 18:13 General: Appears in no apparent distress. Behavior is calm, cooperative. Pain: Pain hb currently is 5 out of 10 on a pain scale. Neuro: Level of Consciousness is awake, alert, obeys commands, Oriented to person, place, time, situation. Cardiovascular: Patient's skin is warm and dry. Rhythm is sinus tachycardia. Respiratory: Respiratory effort is even, unlabored, Respiratory pattern is regular, symmetrical. Derm: Skin is pink, warm \T\ dry. Historical: - Allergies: 18:13 PENICILLINS; hb - Home Meds: 18:13 escitalopram oxalate 10 mg oral tablet daily [Active]; hb - PMHx: 18:13 Kidney stones; hb - PSHx: 18:13 section; hb - Immunization history:: Adult Immunizations up to date. - Infectious Disease History:: Denies. - Social history:: Smoking status: Reported history of juuling and/or vaping. Screenin:42 [facility] ED Fall Risk Assessment (Adult) History of falling in the last 3 months, cp4 including since admission No falls in past 3 months (0 pts) Confusion or Disorientation No (0 pts) Intoxicated or Sedated No (0 pts) Impaired Gait No (0 pts) Mobility Assist Device Used No (0 pt) Altered Elimination No (0 pt) Score/Fall Risk Level 0 - 2 = Low Risk Oriented to surroundings, Maintained a safe environment, Assessed \T\ reinforced patient's understanding of fall precautions, Hourly rounding (assess needs \T\ fall precautionary measures) done. Abuse screen: Denies threats or abuse. Nutritional screening: No deficits noted. Tuberculosis screening: No symptoms or risk factors identified. Assessment: 18:42 General: Appears uncomfortable. Pain: Denies pain. Neuro: Level of Consciousness is cp4 awake, alert, obeys commands, Oriented to person, place, time, situation, Billet Checker are equal bilaterally Moves all extremities. Gait is steady, Speech is normal, Facial symmetry appears normal, Pupils are PERRLA, Intact. 19:10 General: Appears in no apparent distress. comfortable. General: Behavior is calm, jw7 cooperative. Pain: Denies pain. Neuro: Level of Consciousness is awake, alert, obeys commands, Oriented to person, place, time, situation, Appropriate for age. Cardiovascular: Heart tones S1 S2 present Capillary refill < 3 seconds Clubbing of nail beds is absent JVD is absent Patient's skin is warm and dry. Respiratory: Airway is patent Trachea midline Respiratory effort is even, unlabored, Respiratory pattern is regular, symmetrical, Breath sounds are clear bilaterally. GI: Abdomen is round non-distended, Bowel sounds present X 4 quads. Abd is soft and non tender X 4 quads. : No deficits noted. No signs and/or symptoms were reported regarding the genitourinary system. EENT: No deficits noted. No signs and/or symptoms were reported regarding the EENT system. Derm: Skin is intact, is healthy with good turgor, Skin is dry, Skin is normal, Skin temperature is warm. Musculoskeletal: Circulation, motion, and sensation intact. Range of motion: intact in all extremities. 19:50 General: Discharge pending completion of IV Fluids. jw7 20:05 Reassessment: Patient appears in no apparent distress at this time. No changes from jw7 previously documented assessment. Patient and/or family updated on plan of care and expected duration. Pain level reassessed. Patient is alert, oriented x 3, equal unlabored respirations, skin warm/dry/pink. Vital Signs: 18:12 BP 129 / 95; Pulse 104; Resp 15; Temp 99(O); Pulse Ox 98% on R/A; Weight 90.72 kg; hb Height 5 ft. 7 in. ; Pain 5/10; 19:15 BP 120 / 88; Pulse 99; Resp 18 S; Pulse Ox 98% on R/A; jw7 21:44 BP 124 / 82; Pulse 89; Resp 17; Temp 98.3; Pulse Ox 99% ; jj7 18:12 Body Mass Index 31.32 (90.72 kg, 170.18 cm) hb 18:12 Pain Scale: Adult hb ED Course: 17:39 Patient arrived in ED. mr 17:41 Michael Eller MD is Attending Physician. mal 18:13 Triage completed. hb 18:14 Arm band placed on. hb 18:19 Lucille Easton is Primary Nurse. cp4 18:42 Bed in low position. Call light in reach. Side rails up X2. cp4 18:42 Initial lab(s) drawn, by id, sent to lab. Urine collected: clean catch specimen, clear. cp4 Inserted saline lock: 20 gauge in right antecubital area, using aseptic technique. Blood collected. 19:05 Report received from KATT Adkins. jw7 20:03 Elli Monzon RN is Primary Nurse. jw7 21:45 No provider procedures requiring assistance completed. IV discontinued, intact, jj7 bleeding controlled, No redness/swelling at site. Pressure dressing applied. Administered Medications: 18:41 Drug: NS 0.9% IV 1000 ml IV at 1 bolus Per protocol; 1000 mL bolus Route: IV; Rate: 1 cp4 bolus; Site: right antecubital; 20:07 Follow up: Response: No adverse reaction; IV Status: Completed infusion; IV Intake: jw7 1000ml 18:41 Drug: NS 0.9% IV 1000 ml IV at 1 bolus Per protocol; 1000 mL bolus Route: IV; Rate: 1 cp4 bolus; Site: right antecubital; 21:44 Follow up: IV Status: Completed infusion jj7 Medication: 18:42 VIS not applicable for this client. cp4 Intake: 20:07 IV: 1000ml; Total: 1000ml. jw7 Outcome: 19:47 Discharge ordered by . mal 21:45 Discharged to home ambulatory, jj7 21:45 Condition: improved 21:45 Discharge instructions given to patient, Instructed on discharge instructions, follow up and referral plans. Demonstrated understanding of instructions, follow-up care, 21:45 Patient left the ED. jj7 Signatures: Michael Eller MD MD cha Rivera, Lory, Reg Reg mr CaldwellAziza, RN RN Elli Monzon RN RN jw7 Shayna Fulton RN RN jj7 Lucille Easton cp4 Corrections: (The following items were deleted from the chart) 21:51 21:50 Patient left the ED. jj7 jj7
[2023-11-08 22:10] VITALS: BP 120/88; TEMP 99; O2SAT 98
--- NOTE | 2023-11-09 14:12 | EKG ---
Test Date: 2023-11-08 Test Time: 18:57:40 Collet Gluer: NASRA MEASUREMENT RESULTS: Intervals: Rate: 97 NH: 178 QRSD: 82 QT: 352 QTc: 447 [place]: P: 44 NH: 178 QRS: 21 T: 46 INTERPRETIVE STATEMENTS: Sinus rhythm with occasional premature ventricular complexes Otherwise normal ECG No previous ECG available for comparison Electronically Signed On 11-09-23 14:09:59 CDT by Ricky Tena
== END 2023-11-08 21:50 | disposition home or self-care (01) ==
LOC: ER 17:39
DX: T67.5XXA Heat exhaustion, unspecified, initial encounter (principal); E86.0 Dehydration; D72.829 Elevated white blood cell count, unspecified
CPT/HCPCS: 96361; 93005; 85025; 81001; 36415; 82550; 81025; 84484; 80053; 96360; 99284; J7030